=== PATIENT | female | born 1990 | race African-American/Black ===

== ENCOUNTER 2020-07-10 11:56 | Inpatient (IN) | payer MEDICAID ==
[~2020-07-10] VITALS: Ht 154.9 cm; Wt 66.4 kg
[2020-07-10 12:32] LABS: BASOPHILS 0.3 % (0-2); HEMATOCRIT 25.3 % (36.0-48.0); HEMOGLOBIN 8.4 g/dL (12-16); LYMPHOCYTES 19.3 % (15-50); MCH 31.6 pg (26.0-34.0); MCHC 33.1 g/dL (31.0-37.0); MCV 95.6 fL (80.0-100.0); MEAN PLATELET VOLUME 7.3 fL (7.4-10.4); MONOCYTES 7.8 % (2-11); NEUTROPHILS 71.6 % (40-80); PLATELET COUNT 126 10x3/uL (130-400); RBC 2.65 10x6/uL (4.00-5.40); RDW 18.3 % (11.5-14.5); WBC 4.9 10x3/uL (4.8-10.8)
[2020-07-10 12:39] LABS: ANION GAP 15.2 mmol/L (8-16); CALCIUM 9.2 mg/dL (8.5-10.1); CARBON DIOXIDE 25.9 mmol/L (21.0-32.0); CREATININE - SERUM 17.9 mg/dL (0.6-1.3); POTASSIUM - SERUM 5.1 mmol/L (3.5-5.1)
[2020-07-10 12:45] LABS: ALBUMIN 3.3 g/dL (3.4-5.0); BILIRUBIN - TOTAL 0.53 mg/dL (0.2-1.3); PROTEIN - SERUM 9.2 g/dL (6.4-8.2)
[2020-07-10 16:09] VITALS: BP 176/120
--- NOTE | 2020-07-10 19:06 | NUR ---
PT REPORT GIVEN TO NESHA HONEYCUTT AT THIS TIME.
--- NOTE | 2020-07-10 19:29 | NUR ---
PT REMAINS IN DIALYSIS AT THIS TIME, YINKA MAGALLON CALLS WITH UPDATE. SHERITA BROUGHT PT A SANDWICH FROM ED. REPORT THEN CALLED TO MARJORIE HECK FROM [facility].
--- NOTE | 2020-07-10 21:07 | NUR ---
RECIEVED TO ROOM 2127 FROM ER, PT A&O. RESPERATIONS EVEN ON RA. HISTORY OBTAINED, PT CANT RECALL HER HOME MEDICATIONS, PT ASKED IF WE CAN CALL HER DIALYSIS UNIT IN [place] IN THE MORNING AND HAVE A LIST FAXED OVER.
[2020-07-10] MEDS ORDERED: COREG 3.1253.125 MG (21:36)
[2020-07-10 23:02] VITALS: BP 168/107; Ht 154.9 cm; Wt 66.4 kg
--- NOTE | 2020-07-11 01:04 | NUR ---
PT C/O HEADACHE, BP 174/113, SPOKE WITH LILLI BURGOS, ORDERS GIVEN AND CARRIED OUT.
--- NOTE | 2020-07-11 01:25 | NUR ---
TYLENOL 650 MG GIVEN FOR C/O KUMAR, PT REFUSED TO TAKE LISINOPRIL, PT STATED THAT IT MAKES HER LIPS SWELL, HOWEVER PT WAS ASKED BEFORE MEDICATIONS WERE PULLED FROM THE PYXIS WHAT SHE WAS ALLERGIC TO AND PT ONLY STATED BACTRIUM.
[2020-07-11 03:42] VITALS: BP 141/76
[2020-07-11] MEDS ORDERED: NORVASC5 MG PO (06:58)
--- NOTE | 2020-07-11 07:00 | NUR ---
REPORT RECEIVED. PATIENT IS AAOX4, LYING IN SEMI-FOWLERS POSITION. NO S/S OF DISTRESS OBSERVED. RR EVEN AND UNLABORED ON ROOM AIR. PIV TO LT HAND, PATENT, SL. PATIENT DENIES NEEDS AT THIS TIME. CL IN REACH, BED LOCKED AND LOWERED. WILL CPOC.
[2020-07-11 08:00] VITALS: BP 160/111
[2020-07-11 08:04] LABS: ANION GAP 10.9 mmol/L (8-16); CARBON DIOXIDE 30.2 mmol/L (21.0-32.0); PHOSPHOROUS 5.2 mg/dL (2.5-4.9)
[2020-07-11 08:05] LABS: BASOPHILS 0.4 % (0-2); EOSINOPHILS 0.6 % (0-7); HEMATOCRIT 22.4 % (36.0-48.0); HEMOGLOBIN 7.6 g/dL (12-16); LYMPHOCYTES 19.9 % (15-50); MCH 32.1 pg (26.0-34.0); MCV 94.4 fL (80.0-100.0); MEAN PLATELET VOLUME 7.1 fL (7.4-10.4); MONOCYTES 6.9 % (2-11); NEUTROPHILS 72.2 % (40-80); PLATELET COUNT 113 10x3/uL (130-400); RBC 2.37 10x6/uL (4.00-5.40); RDW 17.5 % (11.5-14.5); WBC 5.2 10x3/uL (4.8-10.8)
[2020-07-11 08:07] LABS: CREATININE - SERUM 11.2 mg/dL (0.6-1.3); POTASSIUM - SERUM 4.1 mmol/L (3.5-5.1)
[2020-07-11 09:14] LABS: HEPATITIS C ANTIBODY 0.2 S/CO RAT (0.0-0.9)
--- NOTE | 2020-07-11 11:50 | NUR ---
I have reviewed this patient and I concur with the Shift Assessment completed by the Licensed Practical Nurse today this shift.
[2020-07-11 15:17] LABS: SARS-CoV-2 ANTIGEN NEGATIVE- SARS-COV-2 (NEGATIVE)
[2020-07-11 15:30] VITALS: BP 153/100
--- NOTE | 2020-07-11 16:22 | NUR ---
DISCHARGE PAPERS SIGNED, COPIES GIVEN. PIV DC'D WITH CATH TIP INTACT. FORM WORKER ESCORTING PATIENT TO ER VIA WHEELCHAIR WHERE HER TRANSPORTATION IS WAITING.
--- NOTE | 2020-07-11 22:48 | MORECARE ---
CASE MANAGEMENT DISCHARGE SUMMARY PATIENT: SAUD TUCKER UNIT: [id number] ADM DATE: 07/10/20 AGE: 29 : 88 SEX: F ROOM/BED: D.8538 AUTHOR: NEPTALI,DOC PHYSICIAN: REFERRING PHYSICIAN: CRISTOPHER MADRID MD DATE OF SERVICE: 07/11/20 Case Management Discharge Planning Summary COMMENTS ENTERED DATE: 07/11/20 22:30 CT COMMENT TYPE: Discharge Planning REVIEWER: Steph Valdez CM spoke with Tita with patient pathways and she stated that the patient was discharged and she is still arranging HD chair. CM explained that she has [facility] pending and verified with Gissel in [facility]. Hep panel and covid are in. Tita wants CM to verify patients address and phone number so she can get a chair time set up. Tita stated that Dr. Pacheco told patient to come back to ER when she needed dialysis until chair time is set. Patient just moved here from [place] and made no arrangements for dialysis. CM did verify address and Tita is aware. DCP REVIEW SUMMARY ANTICIPATED D/C DATE: EXPECTED LOS : CASE STATUS: DCP Initiated INITIAL REVIEW: 07/10/2020 INITIAL REVIEWER: Steph Valdez FINAL DISCHARGE DISPOSITION: : FINAL REVIEWER: FINAL REVIEW DATE: DCP Focus Questions & Answers QUESTION: ANSWER : PATIENT: SAUD TUCKER ENCOUNTER: [id number] MEDICAL RECORD#: [id number] ADMISSION DATE: 07/10/2020 DISCHARGE DATE: 07/11/2020 ATTENDING MD: CRISTOPHER PATEL : AGE: 29 MARITAL STATUS: S DC PLAN ID: [id number] FACILITY: [facility] PRINTED ON: 07/11/20 22:48 CT All edits/amendments must be made on the electronic document DICTATION DATE: 07/11/202247 ETL DATA ARCHITECT: J CARLOS 07/11/202247 RPT#: [id number] DC DATE:07/11/20 STATUS: DIS IN [facility] [address] [place] [address] END OF REPORT
[2020-07-12] MEDS ORDERED: LOPRESSOR25 MG PO (13:28)
== END 2020-07-11 16:31 | disposition home or self-care (01) | DRG 682 ==
LOC: D.ER 11:56 → D.M2 19:33
PROVIDERS: Emergency Medicine; Internal Medicine Nephrology; ADMIT Family Medicine; ATTEND Family Medicine
DX: I12.0 Hypertensive chronic kidney disease with stage 5 chronic kidney disease or end stage renal disease (principal); N18.6 End stage renal disease; J81.1 Chronic pulmonary edema; Z21 Asymptomatic human immunodeficiency virus [HIV] infection status; E83.39 Other disorders of phosphorus metabolism; Z99.2 Dependence on renal dialysis; D63.1 Anemia in chronic kidney disease

== ENCOUNTER 2020-07-12 11:02 | Emergency (ER) | payer SELFPAY ==
[~2020-07-12] VITALS: Ht 154.9 cm; Wt 64.5 kg
[~2020-07-12 11:02] MED LIST: COREG 3.1253.125 MG; NORVASC5 MG PO
[2020-07-12 11:12] VITALS: Ht 154.9 cm; Wt 64.5 kg
[2020-07-12 12:00] LABS: BASOPHILS 0.3 % (0-2); EOSINOPHILS 1.1 % (0-7); HEMATOCRIT 24.4 % (36.0-48.0); HEMOGLOBIN 8.2 g/dL (12-16); LYMPHOCYTES 20.2 % (15-50); MCH 31.7 pg (26.0-34.0); MCHC 33.6 g/dL (31.0-37.0); MCV 94.5 fL (80.0-100.0); MEAN PLATELET VOLUME 6.8 fL (7.4-10.4); MONOCYTES 6.9 % (2-11); NEUTROPHILS 71.5 % (40-80); RBC 2.58 10x6/uL (4.00-5.40); RDW 17.9 % (11.5-14.5)
[2020-07-12 12:02] LABS: CALCIUM 9.7 mg/dL (8.5-10.1); CARBON DIOXIDE 32.3 mmol/L (21.0-32.0); POTASSIUM - SERUM 4.3 mmol/L (3.5-5.1)
[2020-07-12 12:08] LABS: ALBUMIN 3.2 g/dL (3.4-5.0); BILIRUBIN - TOTAL 0.61 mg/dL (0.2-1.3); PROTEIN - SERUM 9.3 g/dL (6.4-8.2)
[2020-07-12 12:27] LABS: PLATELET COUNT 140 10x3/uL (130-400)
[2020-07-12] MEDS ORDERED: LOPRESSOR25 MG PO (13:28)
[2020-07-12 15:51] VITALS: BP 168/109
--- NOTE | 2020-07-12 17:10 | NUR ---
Pt. tolerated dialysis well. Removed 3200mls of fluid. Report given to Kristi HONEYCUTT.
== END 2020-07-12 15:52 ==
LOC: D.ER 11:02
PROVIDERS: Emergency Medicine
DX: N18.6 End stage renal disease (principal); D63.1 Anemia in chronic kidney disease; Z99.2 Dependence on renal dialysis; I50.9 Heart failure, unspecified; J45.909 Unspecified asthma, uncomplicated

== ENCOUNTER 2020-07-14 18:04 | Emergency (ER) | payer SELFPAY ==
[~2020-07-14] VITALS: Ht 154.9 cm; Wt 64.5 kg
[~2020-07-14 18:04] MED LIST changes: +LOPRESSOR25 MG PO
[2020-07-14 18:09] VITALS: Ht 154.9 cm; Wt 64.5 kg
[2020-07-14 21:10] VITALS: BP 169/100
== END 2020-07-14 21:19 | disposition home or self-care (01) ==
LOC: D.ER 18:04
DX: N18.6 End stage renal disease (principal); Z99.2 Dependence on renal dialysis; I50.9 Heart failure, unspecified; J45.909 Unspecified asthma, uncomplicated

== ENCOUNTER 2020-07-17 15:54 | Emergency (ER) | payer SELFPAY ==
[~2020-07-17] VITALS: Ht 154.9 cm; Wt 64.5 kg
[2020-07-17 15:59] VITALS: Ht 154.9 cm; Wt 64.5 kg
[2020-07-17 16:53] LABS: MEAN PLATELET VOLUME 6.9 fL (7.4-10.4); WBC 4.7 10x3/uL (4.8-10.8)
[2020-07-17 16:54] LABS: BASOPHILS 0.3 % (0-2); EOSINOPHILS 2.5 % (0-7); HEMATOCRIT 22.1 % (36.0-48.0); LYMPHOCYTES 27.4 % (15-50); MCH 31.7 pg (26.0-34.0); MCHC 33.7 g/dL (31.0-37.0); MCV 93.9 fL (80.0-100.0); MONOCYTES 7.7 % (2-11); NEUTROPHILS 62.1 % (40-80); PLATELET COUNT 142 10x3/uL (130-400); RBC 2.35 10x6/uL (4.00-5.40); RDW 18.2 % (11.5-14.5)
[2020-07-17 17:08] LABS: HEMOGLOBIN 7.4 g/dL (12-16)
[2020-07-17 17:15] LABS: ANION GAP 15.5 mmol/L (8-16); CALCIUM 8.6 mg/dL (8.5-10.1); CARBON DIOXIDE 25.7 mmol/L (21.0-32.0); CREATININE - SERUM 14.7 mg/dL (0.6-1.3); POTASSIUM - SERUM 4.2 mmol/L (3.5-5.1)
--- NOTE | 2020-07-17 19:12 | NUR ---
PT TOLERATED DIALYSIS TX WELL. 3000MLS UF REMOVED. VS STABLE 148/90-104. REPORT GIVEN TO ANYI HONEYCUTT.
[2020-07-17 19:24] VITALS: BP 140/90
== END 2020-07-17 19:25 | disposition home or self-care (01) ==
LOC: D.ER 15:54
PROVIDERS: Internal Medicine Nephrology
DX: N18.6 End stage renal disease (principal); Z99.2 Dependence on renal dialysis; I50.9 Heart failure, unspecified; J45.909 Unspecified asthma, uncomplicated

== ENCOUNTER 2020-07-20 10:22 | Emergency (ER) | payer SELFPAY ==
[~2020-07-20] VITALS: Ht 154.9 cm; Wt 64.5 kg
[2020-07-20 10:25] VITALS: Ht 154.9 cm; Wt 64.5 kg
[2020-07-20 12:38] LABS: ANION GAP 14.3 mmol/L (8-16); CALCIUM 8.5 mg/dL (8.5-10.1); CARBON DIOXIDE 26.1 mmol/L (21.0-32.0); CREATININE - SERUM 15.1 mg/dL (0.6-1.3); POTASSIUM - SERUM 4.4 mmol/L (3.5-5.1)
[2020-07-20 12:44] LABS: ALBUMIN 2.9 g/dL (3.4-5.0); BASOPHILS 0.5 % (0-2); BILIRUBIN - TOTAL 0.31 mg/dL (0.2-1.3); EOSINOPHILS 3.3 % (0-7); HEMATOCRIT 20.8 % (36.0-48.0); LYMPHOCYTES 26.4 % (15-50); MCH 31.8 pg (26.0-34.0); MCHC 33.8 g/dL (31.0-37.0); MCV 94.1 fL (80.0-100.0); MEAN PLATELET VOLUME 8.1 fL (7.4-10.4); MONOCYTES 8.1 % (2-11); NEUTROPHILS 61.7 % (40-80); RBC 2.21 10x6/uL (4.00-5.40); RDW 17.6 % (11.5-14.5); WBC 4.5 10x3/uL (4.8-10.8)
[2020-07-20 12:47] LABS: PLATELET COUNT 89 10x3/uL (130-400)
[2020-07-20 15:46] VITALS: BP 148/100
== END 2020-07-20 15:46 ==
LOC: D.ER 10:22
PROVIDERS: Emergency Medicine
DX: N18.6 End stage renal disease (principal); Z99.2 Dependence on renal dialysis; J45.909 Unspecified asthma, uncomplicated; I50.9 Heart failure, unspecified

== ENCOUNTER 2020-07-26 19:13 | Inpatient (IN) | payer MEDICAID ==
[~2020-07-26] VITALS: Ht 154.9 cm; Wt 64.5 kg
[2020-07-26 20:21] LABS: BASOPHILS 0.3 % (0-2); EOSINOPHILS 1.5 % (0-7); HEMATOCRIT 23.3 % (36.0-48.0); HEMOGLOBIN 7.9 g/dL (12-16); MCH 31.7 pg (26.0-34.0); MCHC 33.8 g/dL (31.0-37.0); MCV 93.7 fL (80.0-100.0); MEAN PLATELET VOLUME 6.8 fL (7.4-10.4); MONOCYTES 5.6 % (2-11); NEUTROPHILS 76.6 % (40-80); RBC 2.48 10x6/uL (4.00-5.40); RDW 17.7 % (11.5-14.5); WBC 6.2 10x3/uL (4.8-10.8)
[2020-07-26 20:23] LABS: PLATELET COUNT 121 10x3/uL (130-400)
[2020-07-26 20:30] LABS: ANION GAP 14.8 mmol/L (8-16); CALCIUM 9.2 mg/dL (8.5-10.1); CARBON DIOXIDE 26.1 mmol/L (21.0-32.0); CREATININE - SERUM 9.1 mg/dL (0.6-1.3); POTASSIUM - SERUM 3.9 mmol/L (3.5-5.1)
[2020-07-26 20:43] LABS: ALBUMIN 3.4 g/dL (3.4-5.0); BILIRUBIN - TOTAL 0.57 mg/dL (0.2-1.3); PROTEIN - SERUM 10.2 g/dL (6.4-8.2)
--- NOTE | 2020-07-26 21:45 | NUR ---
RECEIVED PT TO ROOM AT THIS TIME.
[2020-07-27 02:00] VITALS: BP 173/118
[2020-07-27 12:48] LABS: INFLUENZA TYPE A NEGATIVE (NEGATIVE); INFLUENZA TYPE B NEGATIVE (NEGATIVE); SARS-CoV-2 ANTIGEN NEGATIVE- SARS-COV-2 (NEGATIVE)
--- NOTE | 2020-07-27 13:22 | NUR ---
BLOOD TAKEN TO DIALYSIS FOR INFUSION.
[2020-07-27 13:30] VITALS: BP 164/97
[2020-07-27 13:43] VITALS: BMI 26.8
--- NOTE | 2020-07-27 15:01 | NUR ---
PT WAS TAKEN FROM ED TO DIALYSIS AND THEN IS TO BE TRANSPORTED TO 2100
[2020-07-27 17:40] VITALS: BP 164/97; Ht 154.9 cm; Wt 64.5 kg
[2020-07-27 21:33] VITALS: BP 169/108
[2020-07-28 00:06] VITALS: BP 145/98
[2020-07-28 05:07] VITALS: BP 154/106
[2020-07-28 05:45] LABS: BASOPHILS 0.4 % (0-2); EOSINOPHILS 1.8 % (0-7); HEMATOCRIT 23.7 % (36.0-48.0); HEMOGLOBIN 8.2 g/dL (12-16); MCH 31.8 pg (26.0-34.0); MCHC 34.6 g/dL (31.0-37.0); MCV 91.9 fL (80.0-100.0); MEAN PLATELET VOLUME 7.3 fL (7.4-10.4); MONOCYTES 7.5 % (2-11); NEUTROPHILS 78.3 % (40-80); PLATELET COUNT 119 10x3/uL (130-400); RBC 2.57 10x6/uL (4.00-5.40); RDW 17.9 % (11.5-14.5); WBC 7.2 10x3/uL (4.8-10.8)
[2020-07-28 05:54] LABS: ANION GAP 15.2 mmol/L (8-16); CARBON DIOXIDE 24.4 mmol/L (21.0-32.0); CREATININE - SERUM 7.5 mg/dL (0.6-1.3); PHOSPHOROUS 4.8 mg/dL (2.5-4.9); POTASSIUM - SERUM 3.6 mmol/L (3.5-5.1)
[2020-07-28 07:59] VITALS: BP 157/107
--- NOTE | 2020-07-28 08:00 | NUR ---
PT RECEIVED AWAKE AND ALERT IN BED. NO COMPLAINTS. OXYGEN VIA NC. DRESSING TO RIGHT ARM FISTULA. BP UP 157/107 SO WILL GIVE MEDS.
--- NOTE | 2020-07-28 11:33 | NUR ---
PT CALLED WITH COMPLAINT OF PENTAM INFUSION MAKING HER FEEL WEIRD IN HER CHEST. HAD JUST STARTED IT SO STOPPED AND FLUSHED IV. MONITORING FOR REACTIONS.
[2020-07-28 12:08] VITALS: BP 155/107
[2020-07-28 14:09] LABS: BASOS 0 % (Not Estab.); CD4 - % CD4 POS. LYMPH 19.9 % (30.8-58.5); CD4 - ABSOLUTE CD4 HELPER 179 /uL (359-1519); EOS 2 % (Not Estab.); EOS (ABSOLUTE) 0.1 x10E3/uL (0.0-0.4); HEMATOCRIT 24.4 % (34.0-46.6); HEMATOLOGY COMMENTS Note: (()); HEMOGLOBIN 7.8 g/dL (11.1-15.9); LYMPHS 17 % (Not Estab.); LYMPHS (ABSOLUTE) 0.9 x10E3/uL (0.7-3.1); MCH 31.5 pg (26.6-33.0); MCV 98 fL (79-97); MONOCYTES 5 % (Not Estab.); MONOCYTES (ABSOLUTE) 0.3 x10E3/uL (0.1-0.9); NEUTROPHILS 76 % (Not Estab.); NEUTROPHILS (ABSOLUTE) 4.2 x10E3/uL (1.4-7.0); PLATELETS 114 x10E3/uL (150-450); RBC 2.48 x10E6/uL (3.77-5.28); WBC 5.5 x10E3/uL (3.4-10.8)
[2020-07-28 15:18] VITALS: BP 145/97
[2020-07-28 20:00] VITALS: BP 152/104
[2020-07-29] VITALS: BP 145/97
[2020-07-29 04:00] VITALS: BP 167/90
[2020-07-29 06:08] LABS: ANION GAP 12.7 mmol/L (8-16); CALCIUM 8.4 mg/dL (8.5-10.1); CARBON DIOXIDE 27.5 mmol/L (21.0-32.0); POTASSIUM - SERUM 3.2 mmol/L (3.5-5.1)
[2020-07-29 06:14] LABS: CREATININE - SERUM 10.1 mg/dL (0.6-1.3)
[2020-07-29 08:23] VITALS: BP 169/110
[2020-07-29 15:03] VITALS: BP 157/102
[2020-07-29 20:56] VITALS: BP 157/100
[2020-07-30 00:53] VITALS: BP 168/110
[2020-07-30 05:23] VITALS: BP 172/117
[2020-07-30 08:46] LABS: ANION GAP 15.4 mmol/L (8-16); CALCIUM 8.5 mg/dL (8.5-10.1); CARBON DIOXIDE 23.9 mmol/L (21.0-32.0); CREATININE - SERUM 12.6 mg/dL (0.6-1.3); POTASSIUM - SERUM 3.3 mmol/L (3.5-5.1)
[2020-07-30 09:43] VITALS: BP 150/99
--- NOTE | 2020-07-30 11:02 | NUR ---
LEAVING FOR DIALYSIS BY BED.
--- NOTE | 2020-07-30 12:44 | NUR ---
Nutrition Follow-up: Pt reports good appetite/PO intake. Ate ~50% of breakfast this AM. Denies N/V/C/D, chewing/swallowing difficulty. HD 07/27 (-2L). HD today. On regular diet per renal. Diet: Regular PO intake: 50% x 4 meals Wt: 142# (07/27) Last BM: 07/30 Labs noted: Na 131, K+ 3.3 Meds noted: Florajen, Protonix -Encourage PO intake and honor food preferences; offer nutrition supplements. -Monitor wt. -RD will follow up within 3-4 days.
--- NOTE | 2020-07-30 14:08 | NUR ---
BACK FROM DIALYSIS. VS STABLE.
--- NOTE | 2020-07-30 19:34 | NUR ---
RECIEVED UP IN BED WITH VISITOR AT BEDSIDE. TALKING ON TELEPHONE. A/O X4. UP AD AWILDA TO B/R. DENIES ANY NEEDS.
[2020-07-30 20:00] VITALS: BP 150/94
[2020-07-31] VITALS: BP 150/107
[2020-07-31 04:00] VITALS: BP 163/108
--- NOTE | 2020-07-31 08:00 | NUR ---
PT RECEIVED AWAKE AND ALERT IN BED. COMPLAINTS OF STILL COUGHING UP LOTS OF SPUTUM. CULTURE CUP GIVEN FOR SAMPLE. NO OTHER COMPLAINTS AT PRESENT.
[2020-07-31 08:35] VITALS: BP 148/98
[2020-07-31 12:20] VITALS: BP 135/92
[2020-07-31 16:13] VITALS: BP 133/91
--- NOTE | 2020-07-31 19:14 | NUR ---
RECIEVED UP IN BED WITH EYES OPEN. ALERT AND ORIETNED X4. UP AD AWILDA TO B/R. DENIES ANY NEEDS AT THIS TIME.
[2020-07-31 20:00] VITALS: BP 127/82
[2020-08-01] VITALS: BP 131/89
[2020-08-01 04:00] VITALS: BP 144/99
[2020-08-01 08:10] VITALS: BP 149/109
--- NOTE | 2020-08-01 10:00 | NUR ---
TO DIALYSIS BY BED.
[2020-08-01] MEDS ORDERED: TIVICAY50 MG PO (13:56)
[2020-08-01] MEDS ORDERED: EMTRICITABINE200 MG (13:56)
[2020-08-01 16:10] LABS: SPECIMEN SOURCE Urine (())
[2020-08-01 16:12] VITALS: BP 137/91
--- NOTE | 2020-08-01 19:26 | NUR ---
RECIEVED UP IN BED WITH EYES OPEN AND TV ON. ALERT AND ORIENTED X4. UP AD AWILDA. WALKS IN HALLWAY AT TIMES. DENIES ANY NEEDS.
[2020-08-01 20:00] VITALS: BP 135/94
[2020-08-02] VITALS: BP 141/97
[2020-08-02 03:08] LABS: IMMUNOGLOBULIN E 80 IU/mL (6-495)
[2020-08-02 04:00] VITALS: BP 130/86
[2020-08-02 06:09] LABS: BASOPHILS 0.5 % (0-2); EOSINOPHILS 4.6 % (0-7); HEMATOCRIT 23.1 % (36.0-48.0); HEMOGLOBIN 7.9 g/dL (12-16); LYMPHOCYTES 23.4 % (15-50); MCH 32.2 pg (26.0-34.0); MCHC 34.3 g/dL (31.0-37.0); MCV 93.9 fL (80.0-100.0); MEAN PLATELET VOLUME 7.4 fL (7.4-10.4); MONOCYTES 8.4 % (2-11); NEUTROPHILS 63.1 % (40-80); PLATELET COUNT 138 10x3/uL (130-400); RBC 2.45 10x6/uL (4.00-5.40); RDW 17.8 % (11.5-14.5); WBC 5.4 10x3/uL (4.8-10.8)
[2020-08-02 06:38] LABS: ANION GAP 14.2 mmol/L (8-16); CARBON DIOXIDE 27.5 mmol/L (21.0-32.0); CREATININE - SERUM 8.6 mg/dL (0.6-1.3); POTASSIUM - SERUM 4.7 mmol/L (3.5-5.1)
[2020-08-02 07:51] VITALS: BP 148/101
--- NOTE | 2020-08-02 09:48 | NUR ---
Nutrition Reassessment/Follow-up: Reports appetite is ok. Ate ~50% of breakfast this AM. Denies N/V/C/D. HD yesterday. K+ 4.7 (up from 3.3). Reports liking Nepro. Diet: Regular No new wt; last wt: 142# (07/27) Last BM: 08/02 Labs noted: Na 132, K+ 4.7 Meds noted: Florajen, Protonix Nutrition Intervention/Recs: -Nutrition needs, Dx, & goals unchanged since initial assessment. -Encourage PO intake and honor food preferences within diet restrictions. -+Nepro with meals; on regular diet but K+ 3.3 -> 4.7. -Need new wt. -RD will follow up within 5 days.
[2020-08-02 11:41] VITALS: BP 132/89
[2020-08-02] MEDS ORDERED: EMTRICITABINE200 MG PO (13:18)
[2020-08-02] MEDS ORDERED: TIVICAY50 MG PO (13:18)
[2020-08-02] MEDS ORDERED: COREG12.5 MG PO (13:19)
[2020-08-02] MEDS ORDERED: TESSALON PERLE100 MG PO (13:20)
[2020-08-02] MEDS ORDERED: SINGULAIR10 MG PO (13:20)
[2020-08-02] MEDS ORDERED: PULMICORT0.5 MG/21 UPD (13:20)
--- NOTE | 2020-08-02 13:46 | NUR ---
UP AMBULATING HALLWAY WITH PT ASSIST.
--- NOTE | 2020-08-02 14:26 | NUR ---
PATIENT REFUSES 6 MIN WALK TEST AT THIS TIME
[2020-08-02 16:08] VITALS: BP 138/92
--- NOTE | 2020-08-02 16:08 | NUR ---
SPOKE TO DR. MCLAIN ON PHONE. DR RODO SALINAS DC FOR AM. WILL DC IN AM. RT TO DO WALK TEST.
--- NOTE | 2020-08-02 19:29 | NUR ---
RECIEVED UP IN BED WITH EYES OPEN AND TV ON. ALERT AND ORIENTED X4. UP AD AWILDA. DENIES ANY NEEDS AT THIS TIME.
[2020-08-02 20:22] VITALS: BP 152/109
--- NOTE | 2020-08-02 20:39 | MORECARE ---
CASE MANAGEMENT DISCHARGE SUMMARY PATIENT: BETH TUCKER UNIT: [id number] ADM DATE: 07/26/20 AGE: 29 : 88 SEX: F ROOM/BED: D.[facility] AUTHOR: NEPTALI,DOC PHYSICIAN: REFERRING PHYSICIAN: DAMI ELIZABETH MD DATE OF SERVICE: 08/02/20 Case Management Discharge Planning Summary DCP REVIEW SUMMARY ANTICIPATED D/C DATE: EXPECTED LOS : CASE STATUS: DCP Initiated INITIAL REVIEW: 07/26/2020 INITIAL REVIEWER: Steph Valdez FINAL DISCHARGE DISPOSITION: : FINAL REVIEWER: FINAL REVIEW DATE: DCP Focus Questions & Answers QUESTION: ANSWER : PATIENT: BETH TUCKER ENCOUNTER: [id number] MEDICAL RECORD#: [id number] ADMISSION DATE: 07/26/2020 DISCHARGE DATE: ATTENDING MD: : AGE: 29 MARITAL STATUS: S DC PLAN ID: [id number] FACILITY: [facility] PRINTED ON: 08/02/20 20:39 CT All edits/amendments must be made on the electronic document DICTATION DATE: 08/02/202038 PATHOLOGY LABORATORY DIRECTOR: J CARLOS 08/02/202038 RPT#: [id number] DC DATE: STATUS: ADM IN [facility] [address] [place] [address] END OF REPORT
--- NOTE | 2020-08-02 22:11 | NUR ---
PATIENT REFUSED. SAID SHE ALREADY WALKED 2X TODAY. CLAIMS 6 MIN WALK ALREADY DONE, BUT NO DOCUMENTATION (EXCEPT EARLIER REFUSAL) FOUND. EXPLAINED PURPOSE AND POSSIBILITY OF EXTENDED STAY IF HOME NEEDS NOT DETERMINED. HER RESPONSE WAS-IT'S OUR FAULT THERE'S NO DOC "CAUSE IT WAS DONE". REFUSED TO DO IT.
[2020-08-03 01:38] VITALS: BP 136/100
--- NOTE | 2020-08-03 02:11 | NUR ---
SINCE SHE REFUSED HER 6 MIN WALK TEST X2 DECIDED TO PUT O2 OFF AND SEE HOW SHE DID. AFTER I HOUR ON ROOM AIR SP2 WAS 94%. O2 LEFT OFF.
--- NOTE | 2020-08-03 03:30 | NUR ---
C/O SOB. CHECKED O2 AND WAS 99% ON ROOM AIR.
[2020-08-03 06:37] VITALS: BP 164/114
[2020-08-03 07:04] LABS: ANION GAP 13.2 mmol/L (8-16); CALCIUM 8.6 mg/dL (8.5-10.1); CARBON DIOXIDE 27.4 mmol/L (21.0-32.0); POTASSIUM - SERUM 4.6 mmol/L (3.5-5.1)
[2020-08-03 07:07] LABS: CREATININE - SERUM 10.8 mg/dL (0.6-1.3)
--- NOTE | 2020-08-03 10:56 | NUR ---
PT TAKEN TO DIALYSIS ON BED.
[2020-08-03] MEDS ORDERED: DULERA 100 MCG8.8 GM INH (11:32)
--- NOTE | 2020-08-03 11:32 | NUR ---
PT'S INSURANCE WILL NOT PAY FOR NEBULIZER. SPOKE WITH KRISTY MAI WITH [facility]. OK TO CHANGE TO INHALER. CALLED TO [facility].
--- NOTE | 2020-08-03 14:51 | NUR ---
OT NOTE: PT COMPLETED SUPINE TO SIT WITH SPV-MOD I. PT COMPLETED SIT TO STAND WITH SPV-MOD I. PT COMPLETED ADL MOBILITY WITH SPV-MOD I. PT COMPLETED DRESSING TASKS WITH SPV-MOD I. PT COMPLETED EOB SITTING BALANCE WITH SPV-MOD I. [phone] THANK YOU,MARK DURAN
--- NOTE | 2020-08-03 15:02 | NUR ---
PT BACK FROM DIALYSIS. DISCHARGE PAPERS REVIEWED. CALLING SISTER FOR RIDE HOME.
--- NOTE | 2020-08-03 15:55 | MORECARE ---
CASE MANAGEMENT DISCHARGE SUMMARY PATIENT: BETH TUCKER UNIT: [id number] ADM DATE: 07/26/20 AGE: 29 : 86 SEX: F ROOM/BED: D.2116 AUTHOR: NEPTALI,DOC PHYSICIAN: REFERRING PHYSICIAN: DAMI LEIZABETH MD DATE OF SERVICE: 08/03/20 Case Management Discharge Planning Summary COMMENTS ENTERED DATE: 08/03/20 15:44 CT COMMENT TYPE: Discharge Planning REVIEWER: Lorena Barrios CM met with patient to complete discharge planning assessment and offer availability of needed services. Patient states that she lives independently at home with her mother prior to admission. Pt verified that home environment is safe and has electricity and running water. Patient denies need for transportation and state that they have funds for services and medications if needed. Pt does not have PCP, plans to f/u with healthy connections and information given to patient for obtaining HIV medication. CM offered and discussed home health, rehab services, and need for any medical equipment. Patient did not express need for offered services at this time. Walk test performed and patient does not need home 02. Transportation home will be provided by her sibling. Patient verbalized understanding of provided resources and information. Plan to discharge after dialysis. Pt inhalers called into [facility] pharmacy. PRP REVIEW SUMMARY ANTICIPATED D/C DATE: 08/03/2020 EXPECTED LOS : 8 CASE STATUS: DCP Initiated INITIAL REVIEW: 07/26/2020 INITIAL REVIEWER: Steph Valdez FINAL DISCHARGE DISPOSITION: : FINAL REVIEWER: FINAL REVIEW DATE: DCP Focus Questions & Answers QUESTION: ANSWER : PATIENT: BETH TUCKER ENCOUNTER: [id number] MEDICAL RECORD#: [id number] ADMISSION DATE: 07/26/2020 DISCHARGE DATE: 08/03/2020 ATTENDING MD: : AGE: 29 MARITAL STATUS: S DC PLAN ID: [id number] FACILITY: [facility] PRINTED ON: 08/03/20 15:55 CT All edits/amendments must be made on the electronic document DICTATION DATE: 08/03/201554 ARCHITECTURAL DESIGN LECTURER: J CARLOS 08/03/20 155 RPT#: [id number] DC DATE:08/03/20 STATUS: DIS IN [facility] [address] [place] [address] END OF REPORT
--- NOTE | 2020-08-06 14:30 | MORECARE ---
CASE MANAGEMENT DISCHARGE SUMMARY PATIENT: BETH TUCKER UNIT: [id number] ADM DATE: 07/26/20 AGE: 29 : 86 SEX: F ROOM/BED: D.2116 AUTHOR: NEPTALI,DOC PHYSICIAN: REFERRING PHYSICIAN: DAMI ELIZABETH MD DATE OF SERVICE: 08/06/20 Case Management Discharge Planning Summary COMMENTS ENTERED DATE: 08/03/20 15:44 CT COMMENT TYPE: Discharge Planning REVIEWER: Lorena Barrios CM met with patient to complete discharge planning assessment and offer availability of needed services. Patient states that she lives independently at home with her mother prior to admission. Pt verified that home environment is safe and has electricity and running water. Patient denies need for transportation and state that they have funds for services and medications if needed. Pt does not have PCP, plans to f/u with healthy connections and information given to patient for obtaining HIV medication. CM offered and discussed home health, rehab services, and need for any medical equipment. Patient did not express need for offered services at this time. Walk test performed and patient does not need home 02. Transportation home will be provided by her sibling. Patient verbalized understanding of provided resources and information. Plan to discharge after dialysis. Pt inhalers called into [facility] pharmacy. NYP REVIEW SUMMARY ANTICIPATED D/C DATE: 08/03/2020 EXPECTED LOS : 8 CASE STATUS: DCP Initiated INITIAL REVIEW: 07/26/2020 INITIAL REVIEWER: Steph Valdez FINAL DISCHARGE DISPOSITION: : FINAL REVIEWER: FINAL REVIEW DATE: DCP Focus Questions & Answers QUESTION: ANSWER : PATIENT: BETH TUCKER ENCOUNTER: [id number] MEDICAL RECORD#: [id number] ADMISSION DATE: 07/26/2020 DISCHARGE DATE: 08/03/2020 ATTENDING MD: : AGE: 29 MARITAL STATUS: S DC PLAN ID: [id number] FACILITY: [facility] PRINTED ON: 08/06/20 14:30 CT All edits/amendments must be made on the electronic document DICTATION DATE: 08/06/201429 SIMULATION SPECIALIST: J CARLOS 08/06/20 143 RPT#: [id number] DC DATE:08/03/20 STATUS: DIS IN [facility] [address] [place] [address] END OF REPORT
== END 2020-08-03 15:41 | disposition home or self-care (01) | DRG 974 ==
LOC: D.ER 19:13 → D.EDHOLD 23:01 → D.M2 23:01
PROVIDERS: Family Medicine; Internal Medicine Pulmonary Disease; ADMIT Internal Medicine; ATTEND Internal Medicine
DX: B20 Human immunodeficiency virus [HIV] disease (principal); J18.9 Pneumonia, unspecified organism; N18.6 End stage renal disease; I12.0 Hypertensive chronic kidney disease with stage 5 chronic kidney disease or end stage renal disease; Z99.2 Dependence on renal dialysis; D69.6 Thrombocytopenia, unspecified; D63.1 Anemia in chronic kidney disease; F12.90 Cannabis use, unspecified, uncomplicated; J45.909 Unspecified asthma, uncomplicated

== ENCOUNTER 2020-08-12 18:50 | Emergency (ER) | payer MEDICAID ==
[~2020-08-12] VITALS: Ht 154.9 cm; Wt 64.4 kg
[~2020-08-12 18:50] MED LIST changes: +COREG12.5 MG PO; +DULERA 100 MCG8.8 GM INH; +EMTRICITABINE200 MG; +EMTRICITABINE200 MG PO; +PULMICORT0.5 MG/21 UPD; +SINGULAIR10 MG PO; +TESSALON PERLE100 MG PO; +TIVICAY50 MG PO
[2020-08-12 19:06] VITALS: Ht 154.9 cm; Wt 64.4 kg
[2020-08-12 19:46] LABS: CALC OSMOLALITY 279 mosm/kg (275-300); CALCIUM 9.2 mg/dL (8.5-10.1); CARBON DIOXIDE 24.3 mmol/L (21.0-32.0); CHLORIDE - SERUM 99 mmol/L (98-107); CREATININE - SERUM 10.7 mg/dL (0.6-1.3); GLUCOSE 104 mg/dL (74-106); POTASSIUM - SERUM 4.4 mmol/L (3.5-5.1); SODIUM 135 mmol/L (136-145); UREA NITROGEN 41 mg/dL (7-18); eGFR NON AFRICAN AMERICAN 4 mL/min (90-120)
[2020-08-12 19:52] LABS: BASOPHILS 0.5 % (0-2); EOSINOPHILS 2.1 % (0-7); HEMATOCRIT 23.6 % (36.0-48.0); HEMOGLOBIN 7.7 g/dL (12-16); LYMPHOCYTES 28.1 % (15-50); MCH 31.4 pg (26.0-34.0); MCHC 32.6 g/dL (31.0-37.0); MCV 96.1 fL (80.0-100.0); MEAN PLATELET VOLUME 7.5 fL (7.4-10.4); MONOCYTES 7.7 % (2-11); NEUTROPHILS 61.6 % (40-80); PLATELET COUNT 125 10x3/uL (130-400); RBC 2.45 10x6/uL (4.00-5.40); RDW 18.9 % (11.5-14.5); WBC 4.4 10x3/uL (4.8-10.8)
[2020-08-12 20:03] LABS: ALBUMIN 2.9 g/dL (3.4-5.0); ALKALINE PHOSPHATASE 210 U/L (30-120); ALT (SGPT) 263 U/L (10-68); BILIRUBIN - TOTAL 0.66 mg/dL (0.2-1.3); CKMB 0.6 U/L (0.0-3.6); CREATINE KINASE 78 UL (21-215); PRO BNP 51974 pg/mL (0-125); PROTEIN - SERUM 8.9 g/dL (6.4-8.2); TROPONIN-I 0.017 ng/mL (0.000-0.060)
[2020-08-12] MEDS ORDERED: OMNICEF300 MG PO (20:49)
[2020-08-12 21:25] VITALS: BP 159/103
== END 2020-08-12 21:26 | disposition home or self-care (01) ==
LOC: D.ER 18:50
PROVIDERS: Family Medicine
DX: R06.09 Other forms of dyspnea (principal); D64.9 Anemia, unspecified; N18.6 End stage renal disease; J06.9 Acute upper respiratory infection, unspecified; J32.9 Chronic sinusitis, unspecified; I50.9 Heart failure, unspecified; Z99.2 Dependence on renal dialysis; B20 Human immunodeficiency virus [HIV] disease

== ENCOUNTER 2020-08-19 07:40 | Emergency (ER) | payer MEDICAID ==
[~2020-08-19] VITALS: Ht 154.9 cm; Wt 66.8 kg
[~2020-08-19 07:40] MED LIST changes: +OMNICEF300 MG PO
[2020-08-19 07:45] VITALS: Ht 154.9 cm; Wt 66.8 kg
[2020-08-19 08:12] LABS: BASOPHILS 0.8 % (0-2); EOSINOPHILS 3.9 % (0-7); HEMATOCRIT 26.9 % (36.0-48.0); HEMOGLOBIN 8.8 g/dL (12-16); LYMPHOCYTES 34.5 % (15-50); MCH 31.8 pg (26.0-34.0); MCHC 32.8 g/dL (31.0-37.0); MEAN PLATELET VOLUME 7.2 fL (7.4-10.4); MONOCYTES 10.6 % (2-11); NEUTROPHILS 50.2 % (40-80); PLATELET COUNT 148 10x3/uL (130-400); RBC 2.78 10x6/uL (4.00-5.40); RDW 19.7 % (11.5-14.5); WBC 4.6 10x3/uL (4.8-10.8)
[2020-08-19 08:19] LABS: APTT 33.8 SECONDS (22.8-39.4); INR 1.31 (0.85-1.17); PROTIME 15.1 SECONDS (11.6-15.0)
[2020-08-19 08:20] LABS: CALC OSMOLALITY 272 mosm/kg (275-300); CALCIUM 9.2 mg/dL (8.5-10.1); CARBON DIOXIDE 27.9 mmol/L (21.0-32.0); CHLORIDE - SERUM 99 mmol/L (98-107); CREATININE - SERUM 9.4 mg/dL (0.6-1.3); GLUCOSE 89 mg/dL (74-106); POTASSIUM - SERUM 4.4 mmol/L (3.5-5.1); SODIUM 134 mmol/L (136-145); UREA NITROGEN 29 mg/dL (7-18); eGFR NON AFRICAN AMERICAN 5 mL/min (90-120)
[2020-08-19 08:36] LABS: ALKALINE PHOSPHATASE 217 U/L (30-120); ALT (SGPT) 129 U/L (10-68); BILIRUBIN - TOTAL 0.54 mg/dL (0.2-1.3); CKMB 0.6 U/L (0.0-3.6); CREATINE KINASE 77 UL (21-215); PROTEIN - SERUM 9.3 g/dL (6.4-8.2)
[2020-08-19 08:37] LABS: TROPONIN-I < 0.017 ng/mL (0.000-0.060)
[2020-08-19 09:55] VITALS: BP 160/111
[2020-08-22] MEDS ORDERED: NORVASC10 MG PO (10:23)
[2020-08-22] MEDS ORDERED: TUMS PO (10:24)
[2020-08-22] MEDS ORDERED: PROTONIX40 MG PO (10:24)
== END 2020-08-19 09:57 | disposition home or self-care (01) ==
LOC: D.ER 07:40
PROVIDERS: Family Medicine
DX: R53.83 Other fatigue (principal); R53.81 Other malaise; I50.9 Heart failure, unspecified; J45.909 Unspecified asthma, uncomplicated; Z99.2 Dependence on renal dialysis; N18.6 End stage renal disease